=== PATIENT | female | born 1930 | race African-American/Black ===

== ENCOUNTER 2018-05-03 14:13 | Emergency (ER) | payer MEDICARE, MEDICAID | END 2018-05-03 15:10 | disposition home or self-care (01) | LOC: ERS 14:13 | DX: H69.93 Unspecified Eustachian tube disorder, bilateral (principal); I10 Essential (primary) hypertension | CPT/HCPCS: 99282 ==

== ENCOUNTER 2018-05-28 10:54 | Inpatient (IN) | payer MEDICARE, MEDICAID ==
[2018-05-28 11:30] LABS: #Lymphocytes 1.1 thou/uL (1.20-3.40); #Monocytes 0.5 thou/uL (0.11-0.59); #Neutrophils 2.7 thou/uL (1.40-6.50); %Basophils 0.9 % (0.0-1.0); %Lymphocytes 25.3 % (21.0-51.0); %Monocytes 10.5 % (0.0-10.0); %Neutrophils 62.3 % (42.0-75.0); Hemoglobin 9.8 g/dL (12.0-16.0); Mean Corpuscular HGB CONC 30.6 g/dL (32.0-36.0); Mean Corpuscular Hemoglobin 28.5 pg (27.0-31.0); Mean Corpuscular Volume 93.4 fL (78.0-98.0); Mean Platelet Volume 7.3 fL (7.4-10.4); Platelet Count 237 thou/uL (130-400); RBC Distribution Width 14.9 % (11.5-14.5); Red Blood Cell (RBC) Count 3.44 mill/uL (4.20-5.40); White Blood Cell (WBC) Count 4.3 thou/uL (4.8-10.8)
[2018-05-28 12:08] LABS: ALT (SGPT) Less than 7 U/L (8-55); AST (SGOT) 12 U/L (5-34); Albumin 2.4 g/dL (3.4-4.8); Alkaline Phosphatase 52 U/L (40-150); Anion Gap 10 mmol/L (10-20); BUN (Urea Nitrogen) 5 mg/dL (9.8-20.1); Bilirubin, Total 0.9 mg/dL (0.2-1.2); CK (CPK) 14 U/L (29-168); Calc. Creatinine Clearance 0 mL/min (70-130); Calcium 8.3 mg/dL (7.8-10.44); Carbon Dioxide 32 mmol/L (23-31); Chloride 99 mmol/L (98-107); Estimated GFR-MDRD Greater than 90; Globulin 5.4 g/dL (2.4-3.5); Glucose 96 mg/dL (83-110); Magnesium 1.6 mg/dL (1.6-2.6); Protein, Total 7.8 g/dL (6.0-8.3); Sodium 139 mmol/L (136-145)
[2018-05-28 12:24] LABS: Potassium 2.3 mmol/L (3.5-5.1)
[2018-05-28 12:28] LABS: CKMB 0.4 ng/mL (0-6.6)
--- NOTE | 2018-05-28 12:34 | RAD ---
PORTABLE CHEST: History: Altered mental status. FINDINGS: Heart size is within normal limits. There are arthrosclerotic changes of the aorta. Chronic lung nair ges are seen. The bones are demineralized. IMPRESSION: 1. Atherosclerosis of the aorta. 2. Diffuse bony demineralization. 3. Mild chronic lung change. POS: [facility]
[2018-05-28] MEDS ORDERED: Potassium Chloride 20 MEQ TAB ONE (12:48)
[2018-05-28] MEDS ORDERED: cefTRIAXone\\ROCEPHIN 1 GM VIAL ONE (12:48)
[2018-05-28] MEDS ORDERED: NS 0.9% w/ 20 MEQ KCL 1,000 ML IV SCH (13:00)
[2018-05-28] MEDS ORDERED: Cefepime 1 GM in Sodium Chloride 0.9% 100 ML IVPB SCH (13:15)
[2018-05-28 14:54] LABS: Troponin I 0.124 ng/mL (< 0.028)
[2018-05-28] MEDS ORDERED: Ondansetron ODT 4 MG TAB SL PRN (16:58)
[2018-05-28] MEDS ORDERED: Ondansetron PF 4 MG/2 ML Vial IVP PRN (16:58)
[2018-05-28 17:37] VITALS: BMI 18.3
[2018-05-28 18:01] LABS: Troponin I 0.143 ng/mL (< 0.028)
[2018-05-29] MEDS: D5 1/2 NS w/20 mEq KCL 1,000 ML IV SCH ×3 (00:08→21:13)
[2018-05-29 05:31] LABS: Hemoglobin 8.1 g/dL (12.0-16.0); Lymphocytes 35 % (21-51); MDiff Complete? YES; Mean Corpuscular HGB CONC 31.3 g/dL (32.0-36.0); Mean Corpuscular Hemoglobin 29.3 pg (27.0-31.0); Mean Corpuscular Volume 93.9 fL (78.0-98.0); Monocytes 13 % (0-10); Neutrophil 52 % (42-75); Platelet Count 167 thou/uL (130-400); Platelet Morphology Comment Appears Adequate; RBC Distribution Width 15.1 % (11.5-14.5); Red Blood Cell (RBC) Count 2.74 mill/uL (4.20-5.40); White Blood Cell (WBC) Count 3.8 thou/uL (4.8-10.8)
[2018-05-29 05:41] LABS: Anion Gap 9 mmol/L (10-20); BUN (Urea Nitrogen) 6 mg/dL (9.8-20.1); Calc. Creatinine Clearance 44 mL/min (70-130); Calcium 7.7 mg/dL (7.8-10.44); Carbon Dioxide 30 mmol/L (23-31); Chloride 107 mmol/L (98-107); Estimated GFR-MDRD Greater than 90; Glucose 132 mg/dL (83-110); Iron Binding Capacity, Total 86 mcg/dL (265-497); Sodium 143 mmol/L (136-145)
[2018-05-29 05:47] LABS: Potassium 2.7 mmol/L (3.5-5.1)
[2018-05-29 06:20] LABS: Folate (Folic Acid) 5.6 ng/mL (7.0-31.4)
[2018-05-29] MEDS: Potassium Chloride 20 MEQ in Premix Bag 1 BAG IVPB SCH ×2 (06:27→08:58)
[2018-05-29] MEDS: cefTRIAXone\\ROCEPHIN 1 GM in Sodium Chloride 0.9% 100 ML IVPB SCH (08:58)
--- NOTE | 2018-05-29 09:02 | HP ---
CHIEF COMPLAINT: Hypokalemia. HISTORY OF PRESENT ILLNESS: Ms. Rosemary Batres is an 87-year-old female with past medical history of hypertension and degenerative joint disease, was seen in the office a couple of days ago with history of weakness, not eating well, and losing weight. The patient had lab work done in the office reveals severe hypokalemia with potassium of 2.2. In view of that, the patient was told to come to the hospital. In the ER, the patient was evaluated and found to have potassium of 2.3. The patient has not been eating well secondary to anorexia for the last few months and lost quite a bit of weight. She lost more than 20 pounds in the last 3 to 4 months and feeling very weak and unable to ambulate. Usually, the patient is very active. Currently, she does not have any chest pain or shortness of breath. No nausea or vomiting. No abdominal pain. No diarrhea. No headache. Feels dizzy sometimes. In the ER, the patient was given KCl replacement and also received antibiotics because of her UTI. Urinalysis done in the office revealed UTI. PAST MEDICAL HISTORY: 1. Hypertension. 2. Degenerative joint disease. PAST SURGICAL HISTORY: None. CURRENT MEDICATIONS: It is not clear what she is on at the present. ALLERGIES: NO KNOWN DRUG ALLERGIES. FAMILY HISTORY: Nothing contributory. SOCIAL HISTORY: The patient lives with her family. No history of smoking. No history of alcohol abuse. REVIEW OF SYSTEMS: CARDIOVASCULAR: No chest pain. No shortness of breath. RESPIRATORY: No fever or cough. GASTROINTESTINAL: No abdominal pain. No diarrhea. No nausea or vomiting. CENTRAL NERVOUS SYSTEM: No headache. Feels dizzy. PHYSICAL EXAMINATION: GENERAL: The patient is alert, awake, oriented x3. VITAL SIGNS: Temperature 98, pulse 80, respirations 20, blood pressure 140/60. HEENT: Head is normocephalic, atraumatic. Pupils are equal and reactive. Nasopharynx is pale and dry. Hard and soft palate, no lesions. SKIN: Turgor decreased. NECK: Supple. No JVD. LUNGS: Breath sounds diminished bilaterally. Percussion dull bilaterally. No rales. No rhonchi. HEART: S1 and S2 regular. ABDOMEN: Soft. No distention. No tenderness. Normal bowel sounds present. Some regular hernia present. CENTRAL NERVOUS SYSTEM: No focal deficits. EXTREMITIES: No edema. LABORATORY DATA: CBC shows WBC of 4.3, hemoglobin 9.8, hematocrit 32.1, platelets 237. Metabolic panel; sodium 139, potassium 2.3, chloride 99, CO2 of 32, creatinine 0.5, glucose 96. CK-MB 0.4, globulin 5.4. Chest x-ray showed chronic lung changes. EKG shows normal sinus rhythm, no acute ST changes seen. ASSESSMENT: 1. Severe hypokalemia. 2. Anorexia and weight loss. 3. Urinary tract infection. 4. Generalized weakness. 5. Elevated troponin, rule out myocardial infarction. 6. History of hypertension. PLAN: 1. Vital signs q.4. 2. Activity: As tolerated. 3. Allergies: NKDA. 4. IV fluids, D5 half with normal saline with kcl 20 meq at 100 ml/hr. 5. Diet, regular. 6. Continue home medications. 7. Rocephin 1 g IV piggyback daily. 8. GI consult. 9. BMP in the morning. Job ID: [id number] [facility]
[2018-05-29] MEDS: Potassium Chloride 20 MEQ TAB PO SCH ×2 (18:01→20:15)
[2018-05-30 05:05] LABS: #Monocytes 0.5 thou/uL (0.11-0.59); #Neutrophils 2.9 thou/uL (1.40-6.50); %Basophils 0.8 % (0.0-1.0); %Eosinophils 0.3 % (0.0-10.0); %Monocytes 11.3 % (0.0-10.0); %Neutrophils 64.6 % (42.0-75.0); Hemoglobin 8.7 g/dL (12.0-16.0); Mean Corpuscular HGB CONC 31.4 g/dL (32.0-36.0); Mean Corpuscular Volume 95.7 fL (78.0-98.0); Mean Platelet Volume 7.2 fL (7.4-10.4); Platelet Count 185 thou/uL (130-400); Red Blood Cell (RBC) Count 2.89 mill/uL (4.20-5.40); White Blood Cell (WBC) Count 4.5 thou/uL (4.8-10.8)
[2018-05-30 05:28] LABS: Anion Gap 9 mmol/L (10-20); BUN (Urea Nitrogen) 4 mg/dL (9.8-20.1); Calc. Creatinine Clearance 47 mL/min (70-130); Calcium 7.6 mg/dL (7.8-10.44); Carbon Dioxide 27 mmol/L (23-31); Chloride 106 mmol/L (98-107); Estimated GFR-MDRD Greater than 90; Glucose 86 mg/dL (83-110); Potassium 3.6 mmol/L (3.5-5.1); Sodium 138 mmol/L (136-145)
--- NOTE | 2018-05-30 08:48 | CON ---
DATE OF CONSULTATION: 05/29/2018 REFERRING DOCTOR: Johnson Early MD. REASON FOR CONSULTATION: Unexplained weight loss, fatigue, and tiredness. HISTORY OF PRESENT ILLNESS: Ms. Rosemary Batres is a very pleasant 87-year-old fragile-looking black female hospitalized because of severe hypokalemia, history of weight loss, anorexia, etc. The patient was in the room with multiple family members. The patient has unexplained weight loss, but as per admitting history and physical by Dr. Early, states she has lost 20 pounds. Apparently, she has been eating very well over the last several weeks. There is causative information of other family members history of her weighing around 124 pounds two years ago. There is no recent weight documented anywhere. The patient on admission is actually eating much better. She had a good breakfast this morning and she is eating lunch very well. The only complaint she has is cough with some mucoid expectoration, lot of secretions in the throat. She did have abdominal pain, no nausea, no vomiting. Her bowels movements are fairly regular. There is no history of hematochezia or melena. The patient denies any fever or night sweats. Although, she seems to be having weight loss, she really has no localizing symptoms. Interestingly, she is eating much better since she has been hospitalized. Apparently, she has undergone evaluation and potassium level was very low at 2.2 and she was placed on oral potassium. When she came to the ER, potassium was 2.3 and today is 2.7 with IV potassium. The patient has really no other localizing symptoms. ALLERGIES: NONE. SOCIAL HISTORY: The patient lives close with family. No history of alcohol abuse. No illicit drug use. No smoking. MEDICAL ILLNESS: 1. Hypertension. 2. Osteoarthritis. SURGERIES: None. MEDICATIONS: List in the hospital includes ceftriaxone, potassium chloride, statin, and IV fluids. REVIEW OF SYSTEMS: CONSTITUTIONAL: History of weight loss. No history of night sweats. No history of any fever or chills. HEAD: No chronic headache. No syncope. No TIA. HEENT: No visual impairment. No hearing loss. No nose bleeds. NECK: No neck stiffness or pain. LUNGS: No chronic coughing, hemoptysis, or difficulty breathing, but she has been having cough with expectoration recently. CARDIOVASCULAR: No chest pain. No palpitation. No dyspnea, orthopnea, or PND. GI: No abdominal pain. No nausea or vomiting. No dysphagia or odynophagia. No rectal bleeding or melena. : No dysuria or hematuria. MUSCULOSKELETAL: None drawn. NEUROLOGIC: None drawn. ENDOCRINE: None drawn. NEUROPSYCHIATRY: None drawn. PHYSICAL EXAMINATION: GENERAL: She is likely very thin built, appears very comfortable, in no acute distress. VITAL SIGNS: Afebrile. Pulse is 76, blood pressure 121/63. HEENT: Conjunctivae are clear. NECK: Supple. No adenitis or thyromegaly noted. CARDIOVASCULAR: First and second heart sounds heard. LUNGS: Clear to auscultation. ABDOMEN: Abdomen is soft. Abdomen is nontender. No organomegaly or masses. Bowel sounds normal. EXTREMITIES: Reveal no edema. CENTRAL NERVOUS SYSTEMS: Grossly within normal limits. LABORATORY DATA: CBC on admission 4300, hemoglobin 9.8, hematocrit 32.1, today down to 8.1 hemoglobin, hematocrit 25.8, MCV 93.9, platelet count 167,000, polymorphs 62, lymphocytes 25, monocytes 10. Serum chemistries; sodium 143, potassium 2.7, chloride 107, bicarb 30, BUN is 6, creatinine is 0.52, glucose 132, calcium 7.7. TIBC is 86, vitamin B12 slightly low at 189, folic acid 5.60. CLINICAL IMPRESSION: 1. An 87-year-old female with unexplained weight loss. However, she has really no specific GI symptoms. Interestingly, she is eating better in the hospital. Apparently, she had a good breakfast and lunch. She had no localizing symptoms or weight loss. 2. Hypertension. 3. Degenerative joint disease. 4. Hypokalemia, being corrected. I had a long talk with the patient's family and explained to them it is very difficult to say what is going on. However, I offered them for the patient to have ED and the patient's family agreed. We will plan for EGD tomorrow and make further recommendations. Job ID: [id number]
[2018-05-30] MEDS: Folic Acid 1 MG TAB PO SCH (09:05)
[2018-05-30] MEDS: Cyanocobalamin 1000 MCG/ML VIAL IM SCH (09:05)
[2018-05-30] MEDS: cefTRIAXone\\ROCEPHIN 1 GM in Sodium Chloride 0.9% 100 ML IVPB SCH (09:05)
--- NOTE | 2018-05-30 15:21 | PQF ---
CLINICAL DOCUMENTATION IMPROVEMENT CLARIFICATION FORM: ICD-10 Updated PLEASE DO AN ADDENDUM TO THE PROGRESS NOTE WITH ANY DOCUMENTATION UPDATES OR ADDITIONS AND CARRY THROUGH TO DC SUMMARY. THANK YOU. Date: 05/30/18 ATTN: Dr. Early Please exercise your independent, professional judgment in responding to the clarification form. 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 RISKS: H&P 05/28: 87 yr old. Severe hypokalemia. Anorexia and weight loss. TREATMENT: Qa Software Tester Assessment 05/29: Triggered for WTL/PO/ BMI 18.3 Consult for anorexia/weight loss Order 05/29: Supplement: Ensure Enlive Routine BID Moderate Malnutrition (in acute illness) Energy Intake: <75% of estimated energy requirement for > 7 days Weight Loss: 1-2%/1 week; 5%/ 1 month; 7.5%/3 months Other: mild body fat loss; mild muscle mass loss; mild fluid accumulation; Severe Malnutrition (in acute illness) Energy Intake: < 50% of estimated energy requirement for > 5 days Weight Loss: >1-2%/1 week; >5%/1 month; >7.5%/3 months Other: moderate body fat loss; moderate muscle mass loss; moderate- severe fluid accumulation; measurably reduced er medical technician strength Moderate Malnutrition (in chronic illness) Energy Intake: <75% of estimated energy requirement for >1 month Weight Loss: 5%/1 month; 7.5%/3 months; 10%/6 months; 20%/1 year Other: mild body fat loss; mild muscle mass loss; mild fluid accumulation Severe Malnutrition (in chronic illness) Energy Intake: <75% of estimated energy requirement for >1 month Weight Loss: >5%/1 month; >7.5%/3 months; >10%/6 months; >20%/1 year Other: severe body fat loss; severe muscle mass loss; severe fluid accumulation; measurably reduced er medical technician strength Thank you, Nancy (This form is maintained as a part of the permanent medical record) 2015 [employer] All Rights Reserved Nancy Robert RN, BSN [email or web address] Office: [phone] [facility]
[2018-05-30] MEDS ORDERED: Lidocaine 1% PF 5 ML VIAL ONE (16:29)
[2018-05-30] MEDS ORDERED: PROPOFOL 200 MG/20 ML VIAL ONE (16:29)
--- NOTE | 2018-05-30 20:41 | OP ---
DATE OF PROCEDURE: 05/30/2018 OPERATIVE PROCEDURE: Esophagogastroduodenoscopy. PREOPERATIVE DIAGNOSES: Anorexia, weight loss. POSTOPERATIVE DIAGNOSIS: Normal gastroscopy. DESCRIPTION OF PROCEDURE: The patient was placed on her left lateral position and was given sedation by Anesthesia Department. A Pentax video gastroscope under direct vision passed down the oropharynx through the GE junction into the stomach and subsequently into the descending duodenum. The esophageal mucosa appeared normal. The GE junction, no pathology. Retroflexion failed to show any pathology in the fundus or cardia. The gastric body, gastric antrum, no pathology seen. The duodenal bulb, descending duodenum, no pathology. The stomach decompressed and the scope was removed. RECOMMENDATION: Resume a regular diet. The patient is currently eating well over the last 24 hours in the hospital. She does have anemia. I would further recommend symptomatic treatment. Unless she has any overt bleeding or occult GI bleeding, I would probably defer a colonoscopy for this lady. She has started eating better over last 24 hours, I will follow up with her as an outpatient. Job ID: [id number]
[2018-05-31] MEDS: cefTRIAXone\\ROCEPHIN 1 GM in Sodium Chloride 0.9% 100 ML IVPB SCH (09:38)
[2018-05-31] MEDS: Folic Acid 1 MG TAB PO SCH (09:39)
[2018-05-31] MEDS: Cyanocobalamin 1000 MCG/ML VIAL IM SCH (09:39)
[2018-06-01 06:27] LABS: #Lymphocytes 1.2 thou/uL (1.20-3.40); #Monocytes 0.4 thou/uL (0.11-0.59); #Neutrophils 1.4 thou/uL (1.40-6.50); %Eosinophils 1.2 % (0.0-10.0); %Lymphocytes 39.6 % (21.0-51.0); %Monocytes 13.3 % (0.0-10.0); %Neutrophils 44.9 % (42.0-75.0); Hemoglobin 9.5 g/dL (12.0-16.0); Mean Corpuscular HGB CONC 31.2 g/dL (32.0-36.0); Mean Corpuscular Hemoglobin 29.4 pg (27.0-31.0); Mean Corpuscular Volume 94.3 fL (78.0-98.0); Mean Platelet Volume 8.5 fL (7.4-10.4); Platelet Count 136 thou/uL (130-400); RBC Distribution Width 15.4 % (11.5-14.5); Red Blood Cell (RBC) Count 3.24 mill/uL (4.20-5.40)
[2018-06-01 06:53] LABS: ALT (SGPT) Less than 7 U/L (8-55); AST (SGOT) 15 U/L (5-34); Albumin 1.9 g/dL (3.4-4.8); Alkaline Phosphatase 52 U/L (40-150); Anion Gap 10 mmol/L (10-20); BUN (Urea Nitrogen) 5 mg/dL (9.8-20.1); Bilirubin, Total 0.4 mg/dL (0.2-1.2); Calc. Creatinine Clearance 46 mL/min (70-130); Calcium 7.9 mg/dL (7.8-10.44); Carbon Dioxide 26 mmol/L (23-31); Chloride 105 mmol/L (98-107); Estimated GFR-MDRD Greater than 90; Globulin 4.6 g/dL (2.4-3.5); Glucose 75 mg/dL (83-110); Potassium 3.5 mmol/L (3.5-5.1); Protein, Total 6.5 g/dL (6.0-8.3); Sodium 137 mmol/L (136-145)
[2018-06-01] MEDS: Folic Acid 1 MG TAB PO SCH (08:33)
[2018-06-01] MEDS: Cyanocobalamin 1000 MCG/ML VIAL IM SCH (08:34)
[2018-06-01] MEDS: cefTRIAXone\\ROCEPHIN 1 GM in Sodium Chloride 0.9% 100 ML IVPB SCH (09:36)
[2018-06-02 07:55] VITALS: TEMP 97.9
[2018-06-02] MEDS: cefTRIAXone\\ROCEPHIN 1 GM in Sodium Chloride 0.9% 100 ML IVPB SCH (08:43)
[2018-06-02] MEDS: Folic Acid 1 MG TAB PO SCH (08:45)
[2018-06-02] MEDS: Cyanocobalamin 1000 MCG/ML VIAL IM SCH (11:22)
[2018-06-02 16:48] VITALS: BP 110/63
[2018-06-03] MEDS ORDERED: Cyanocobalamin (Vitamin B-12) 1,000 MCG TAB PO SCH (09:00)
== END 2018-06-02 17:30 | disposition home or self-care (01) | DRG 640 ==
LOC: ERS 10:54 → ERHOLD 12:30 → 2NO 17:07 → T4-A 05-31 11:30
PROVIDERS: ADMIT Internal Medicine; ATTEND Internal Medicine
PROC: 0DJ08ZZ Inspection of Upper Intestinal Tract, Via Natural or Artificial Opening Endoscopic (ICD-10-PCS; principal; 2018-05-30)
DX: E87.6 Hypokalemia (principal); E43 Unspecified severe protein-calorie malnutrition; N39.0 Urinary tract infection, site not specified; Z68.1 Body mass index [BMI] 19.9 or less, adult; R74.8 Abnormal levels of other serum enzymes; I10 Essential (primary) hypertension; D63.8 Anemia in other chronic diseases classified elsewhere; M19.90 Unspecified osteoarthritis, unspecified site
CPT/HCPCS: 36415; 71045; 80048; 80053; 82550; 82553; 82607; 82746; 83550; 83735; 84484; 85007; 85025; 85027; 87086; 93005; 96361; 96365; 96375; J0692; J0696; J2001; J2704; J3420; J3480; J7050

== ENCOUNTER 2018-09-19 13:57 | Inpatient (IN) | payer MEDICARE, MEDICAID ==
--- NOTE | 2018-09-19 14:54 | RAD ---
XR Hip Lt 2-3 View INDICATION: 88-year-old female with left leg pain and generalized weakness COMPARISON: None FINDINGS: Bones: No acute osseous abnormality. There is diffuse osteopenia. Hip joint: There is mild left hip osteoarthrosis. SI joints and symphysis pubis: There is mild degenerative change of the symphysis pubis and left SI j oints. Intrapelvic contents: There is a prominent amount of retained stool within the rectal vault. Surrounding soft tissues: There is vascular calcification within the adjacent soft tissues. IMPRESSION: 1. No acute osseous abnormality.
[2018-09-19 14:58] LABS: #Lymphocytes 0.9 thou/uL (1.20-3.40); #Monocytes 0.8 thou/uL (0.11-0.59); #Neutrophils 7.3 thou/uL (1.40-6.50); %Basophils 0.2 % (0.0-1.0); %Eosinophils 0.1 % (0.0-10.0); %Lymphocytes 9.5 % (21.0-51.0); %Monocytes 9.2 % (0.0-10.0); Hemoglobin 10.6 g/dL (12.0-16.0); Mean Corpuscular HGB CONC 30.4 g/dL (32.0-36.0); Mean Corpuscular Hemoglobin 29.1 pg (27.0-31.0); Mean Corpuscular Volume 95.8 fL (78.0-98.0); Mean Platelet Volume 7.2 fL (7.4-10.4); Platelet Count 300 thou/uL (130-400); RBC Distribution Width 13.5 % (11.5-14.5); Red Blood Cell (RBC) Count 3.64 mill/uL (4.20-5.40)
--- NOTE | 2018-09-19 15:19 | RAD ---
PORTABLE CHEST: HISTORY: Shortness of breath. COMPARISON: 05/28/2018 FINDINGS: Mild cardiomegaly is stable. The lungs appear clear of infiltrate. No evidence of vascular congesti on. There is a moderate-sized right effusion, which has increased when compared to the 05/28/2018 ex am. IMPRESSION: Moderate sized right pleural effusion. POS: [facility]
[2018-09-19 15:26] LABS: ALT (SGPT) Less than 7 U/L (8-55); AST (SGOT) 16 U/L (5-34); Albumin 2.8 g/dL (3.4-4.8); Alkaline Phosphatase 52 U/L (40-150); Anion Gap 12 mmol/L (10-20); BUN (Urea Nitrogen) 14 mg/dL (9.8-20.1); Bilirubin, Total 0.8 mg/dL (0.2-1.2); Calc. Creatinine Clearance 0 mL/min (70-130); Carbon Dioxide 25 mmol/L (23-31); Chloride 104 mmol/L (98-107); Estimated GFR-MDRD Greater than 90; Globulin 6.7 g/dL (2.4-3.5); Glucose 104 mg/dL (83-110); Lipase 10 U/L (8-78); Potassium 3.4 mmol/L (3.5-5.1); Protein, Total 9.5 g/dL (6.0-8.3); Sodium 138 mmol/L (136-145)
--- NOTE | 2018-09-19 15:31 | CT ---
CT head without contrast: Multiple axial tomograms obtained through the head without IV enhancement. INDICATIONS: Mental status change COMPARISON: None FINDINGS: There is a left subdural hematoma along the left frontal lobe convexity which has subacute properties . There are acute and chronic components. This measures 1.5 cm width and produces mass effect on the left frontal cortex. Midline shift is measured at 4 mm at the septum pellucidum. Moderate chronic ischemic white matter change. Mild cortical atrophy. Visualized sinuses and mastoids appear clear. Bony calvarium appears unremarkable. IMPRESSION: Left subdural hematoma with mass effect and slight midline shift. Discussed with Dr. West
[2018-09-19 15:41] LABS: CKMB 0.5 ng/mL (0-6.6)
[2018-09-19] MEDS ORDERED: Ondansetron PF 4 MG/2 ML Vial IVP PRN (18:38)
[2018-09-19] MEDS ORDERED: Acetaminophen 325 MG TAB PO PRN (18:38)
[2018-09-19] MEDS ORDERED: Ondansetron ODT 4 MG TAB SL PRN (18:38)
[2018-09-19 18:40] VITALS: BMI 13.5
[2018-09-19] MEDS ORDERED: Sodium Chloride 0.9% 1,000 ML IV SCH (18:45)
[2018-09-19 21:42] LABS: Troponin I 0.087 ng/mL (< 0.028)
[2018-09-20] MEDS ORDERED: Ondansetron ODT 4 MG TAB SL PRN (09:15)
[2018-09-20] MEDS ORDERED: Ondansetron PF 4 MG/2 ML Vial IVP PRN (09:15)
[2018-09-20 10:06] LABS: #Lymphocytes 0.9 thou/uL (1.20-3.40); #Monocytes 0.7 thou/uL (0.11-0.59); #Neutrophils 6.9 thou/uL (1.40-6.50); %Basophils 0.1 % (0.0-1.0); %Eosinophils 0.2 % (0.0-10.0); %Lymphocytes 10.6 % (21.0-51.0); %Monocytes 8.3 % (0.0-10.0); %Neutrophils 80.8 % (42.0-75.0); Mean Corpuscular HGB CONC 30.9 g/dL (32.0-36.0); Mean Corpuscular Hemoglobin 29.6 pg (27.0-31.0); Mean Corpuscular Volume 95.7 fL (78.0-98.0); Mean Platelet Volume 7.9 fL (7.4-10.4); Platelet Count 254 thou/uL (130-400); RBC Distribution Width 13.4 % (11.5-14.5); Red Blood Cell (RBC) Count 3.38 mill/uL (4.20-5.40); White Blood Cell (WBC) Count 8.5 thou/uL (4.8-10.8)
[2018-09-20 10:24] LABS: Anion Gap 11 mmol/L (10-20); BUN (Urea Nitrogen) 12 mg/dL (9.8-20.1); Calc. Creatinine Clearance 41 mL/min (70-130); Calcium 8.8 mg/dL (7.8-10.44); Carbon Dioxide 24 mmol/L (23-31); Chloride 108 mmol/L (98-107); Estimated GFR-MDRD Greater than 90; Glucose 94 mg/dL (83-110); Sodium 140 mmol/L (136-145)
[2018-09-20 10:29] LABS: Potassium 2.7 mmol/L (3.5-5.1)
[2018-09-20] MEDS: Sodium Chloride 0.9% 1,000 ML IV SCH (10:42)
[2018-09-20] MEDS: Potassium Chloride 20 MEQ in Premix Bag 1 BAG IVPB SCH ×2 (11:54→14:58)
--- NOTE | 2018-09-20 12:34 | CON ---
DATE OF CONSULTATION: 09/19/2018 TIME: At 1645 hours in the afternoon. Ms. Batres is an 88-year-old woman, here today in the emergency department, brought by family for medical evaluation for progressive overall decline and deconditioning since around the turn of the year. She had nearly a hospital admission back in May for some altered mental status and generalized fatigue and malaise and was found to be hypokalemic. This was corrected and she improved ever since slightly, but family states that overall she really has not gained much improvement overall since that time and then particularly over the last 3 weeks, she has become more somnolent. She is awake, but does not interact very much. She minimally speaks. She has really rapidly lost weight and is not eating. As of today, she weighs roughly 80 pounds. Neurosurgery was consulted for a CT scan that was done as part of her workup, which showed a left-sided chronic fluid collection that looks like it could be a combination of epidural and subdural collections over the left frontal convexity with some extension down to the left temporal convexity. There is mass effect on the underlying brain parenchyma and some slight midline shift. However, she does also have significant cortical atrophy and a lot of additional space in the cranial vault. She does not have any lateralizing symptoms or concerns on examination. She moves all 4 extremities and is looking around the room. She is just not speaking, though the family states that this is essentially the case since May, timeframe this year the family is unsure that she has had any falls or other opportunities for her to have struck her head. She does also not take any blood thinners at any time according to family that is in the room. From a neurosurgical perspective, I do not see that she necessarily needs any intervention at this time given that she appears cachectic and minimally interactive and that this is more of a chronic state and it is an acute state. It is possible that some of her symptoms do relate to parenchymal compression from this fluid collection, but I feel like she has enough concern for some other overall medical condition that needs to be worked up first. We will defer to Primary Team for this purpose. Job ID: [id number]
[2018-09-20] MEDS: Sodium Chloride 0.45% 1,000 ML IV SCH (20:01)
[2018-09-20] MEDS: Mirtazapine 15 MG TAB PO SCH (20:52)
--- NOTE | 2018-09-20 23:01 | HP ---
CHIEF COMPLAINT: Pain and also weakness and lethargy. HISTORY OF PRESENT ILLNESS: Ms. Batres is an 88-year-old Afro [place] female with past medical history of hypokalemia, protein-calorie malnutrition, who was brought in because of the left leg pain. The patient has been sleepy, feeling very weak. There is some cough productive of whitish sputum. No fever. No chest pain. No shortness of breath. The patient has not been eating well. She was brought to the emergency room, where she was evaluated and she was found to have subdural hematoma on the CT scan of the brain. She was also found to have moderate pleural effusion on the right .pt is being admitted for subdural hematoma and weakness. The patient is admitted for further evaluation and management. PAST MEDICAL HISTORY: 1. Severe protein-calorie malnutrition. 2. Degenerative joint disease. 3. History of hypertension, not on medications. 4. History of UTI. 5. History of hypokalemia. PAST SURGICAL HISTORY: Nothing significant. CURRENT MEDICATIONS: The patient is on Remeron 15 mg nightly and Tylenol p.r.n. ALLERGIES: NKDA. FAMILY HISTORY: Nothing contributory. SOCIAL HISTORY: The patient lives with family. No history of smoking. No history of alcohol abuse. REVIEW OF SYSTEMS: CARDIOVASCULAR: No chest pain. No shortness of breath. RESPIRATORY: She has cough, productive of whitish sputum. No fever. GASTROINTESTINAL: Has anorexia and weight loss. CENTRAL NERVOUS SYSTEM: No headache. Feels dizzy and weak. PHYSICAL EXAMINATION: GENERAL: The patient is alert, awake, and oriented x2. VITAL SIGNS: Temperature 98, pulse 87, respiratory rate 20, and blood pressure 170/100. HEENT: Normocephalic and atraumatic. Pupils are equal and reactive. Nasopharynx is pale and dry. Hard and soft palate. No lesions. SKIN: Turgor decreased. NECK: Supple. No JVD. LUNGS: Bilateral air entry present. No rales, no rhonchi. HEART: S1 and S2. Regular. ABDOMEN: Soft. No distention. No tenderness. Normal bowel sounds present. RECTAL: Deferred. CENTRAL NERVOUS SYSTEM: Nonfocal. The patient is alert, awake, and oriented x2. Motor system, power 3 to 4/5 in all extremities. Deep tendon reflex 2+ bilaterally. Sensory intact. LABORATORY DATA: CBC shows WBC 9, hemoglobin 10, hematocrit 34, and platelets 300. Metabolic panel: Sodium 138, potassium 3.4, chloride 104, CO2 is 25, blood urea nitrogen 14, creatinine 0.5, and glucose 104. Troponin I 0.067. BNP is 285. Albumin 2.8. Chest x-ray, moderate right pleural effusion. CT of the brain revealed a left subdural hematoma with mass effect and slight midline shift. IMAGING STUDIES: Left hip x-ray negative. EKG shows normal sinus rhythm, no acute ST-T changes seen. ASSESSMENT: 1. Subdural hematoma, left. 2. Severe hypokalemia. 3. Generalized weakness. 4. Severe protein-calorie malnutrition. 5. Metabolic encephalopathy. 6. Anorexia, weight loss. PLAN: 1. Vital signs q.4 hours. 2. Activity as tolerated. 3. Allergies: NKDA. 4. IV fluids, half normal at 870 mL/hour. 5. KCl replacement: Continue home medications. 6. GI consult. 7. Neurosurgery consult. 8. Regular diet. Job ID: [id number] [facility]
--- NOTE | 2018-09-20 23:10 | CON ---
DATE OF CONSULTATION: 09/20/2018 REQUESTING PHYSICIAN: Dr. Early. REASON FOR CONSULTATION: Rectal bleeding. HISTORY OF PRESENT ILLNESS: Rosemary Batres is an 88-year-old woman who was admitted to the hospital last night with deteriorating mental status and severe weight loss over the past several months. She has evidently lost quite a bit of weight. She was evaluated from a GI standpoint by Dr. Irene braga in May of 2018. She had an EGD that was normal. Colonoscopy was declined at that time due to the patient's overall health status and risks of the procedure. The patient has never undergone colonoscopy. Upon admission here last night, cranial imaging demonstrated a couple of subdural hematomas actually causing some mass effect and midline shift. She has been evaluated by Neurosurgery and they recommend no neurosurgical intervention at this time. She also has a moderate right pleural effusion. She is certainly confused and her answers to questioning are tangential. This morning, she had a bowel movement and nursing staff noted that there was a bit of red blood mixed in with brownish stool. This is not something that has been noted by providers before and it is unclear whether this is going on at home intermittently or not. The patient is hemodynamically stable and her hemoglobin is 10.0. REVIEW OF SYSTEMS: Full review of systems including constitutional, head, eyes, ears, nose, throat, GI, , cardiovascular, respiratory, musculoskeletal, and neurologic systems is negative except as noted in the HPI. PAST MEDICAL HISTORY: Hypertension, osteoarthritis. ALLERGIES: NONE. SURGERIES: None. OUTPATIENT MEDICATIONS: 1. Potassium chloride 10 mEq daily. 2. Mirtazapine 15 mg at bedtime. 3. Folic acid 800 mg daily. 4. Vitamin B12 1000 mcg daily. FAMILY HISTORY: Negative for known GI malignancy. SOCIAL HISTORY: The patient lives with one of her grandchildren. Her family is very involved. I spoke with her daughter, Carmela, over the phone at length. PHYSICAL EXAMINATION: VITAL SIGNS: Temperature 98.3, pulse 66, blood pressure 145/72, and 95% oxygen saturation on room air. GENERAL: A frail 88-year-old woman lying in bed comfortably, in no distress. MENTAL: She is alert. She does not answer questions appropriately. SKIN: No jaundice. No rashes were palpable. She does have a sacral decubitus ulcer. HEENT: Eyes, no scleral icterus. Extraocular movements intact. ENT mucous membranes moist. No oral lesions. LYMPHS: No submandibular, supraclavicular, lymphadenopathy. Thyroid nontender to palpation. HEART: Regular rate and rhythm. LUNGS: Clear to auscultation bilaterally. ABDOMEN: Flat. Bowel sounds present. Soft, nontender to deep palpation throughout. She does have a somewhat large right-sided anterior abdominal hernia, but this is easily reducible. RECTAL: The patient has external hemorrhoids. I performed a digital rectal exam. There is soft, brown stool in the rectal vault with a tinge of red blood upon withdrawal of the finger. The rectal aguayo feel edematous, but there is no nodularity. EXTREMITIES: Wasting of the extremities x4. No peripheral edema. Vessels, radial pulses 2+ bilaterally. NEURO: Cranial nerves 2 through 12 intact bilaterally. LABORATORY STUDIES: WBC 8.5, hemoglobin 10.0, platelets 254. Sodium 140, potassium 2.7, BUN 12, creatinine 0.53. BNP 285. Troponin 0.087. LFTs all normal with total bilirubin 0.8, alkaline phosphatase 52, AST 16, ALT less than 7, albumin 2.8. IMAGING STUDIES: Chest x-ray shows moderate right pleural effusion. Brain CT shows a left subdural hematoma measuring 1.5 cm with mass effect and midline shift. Hip x-ray shows no acute fracture. ASSESSMENT AND PLAN: 1. Rectal bleeding, small amount. 2. Weight loss. 3. Hemorrhoids. 4. Debility and failure to thrive. The patient does have hemorrhoids on rectal exam, and it is possible that this just represents rectal outlet source, but I cannot clinically rule out more proximal sources of gastrointestinal bleeding. Her hemoglobin is stable. The question is how aggressive we want to be in working this up, given her overall health status and comorbidities. I had a long conversation on the phone with the patient's daughter, Carmela, at phone #[phone]. I discussed the prospect of trying to proceed with diagnostic colonoscopy. I think there would be some diagnostic and perhaps prognostic value, in ruling out serious lesion or alternatively finding significant pathology. However, I doubt that there would be much therapeutic value in colonoscopy. Even if we were to find a colon cancer, the patient would not be a good candidate for surgery or curative chemotherapy, etc. This is Carmela's feeling as well. At this point, the family is against proceeding with any endoscopic investigation. I agree with this decision. The patient would indeed be quite high risk for the procedure and probably would not tolerate the bowel prep very well. GI will sign off at this time, but please call back any time with questions or concerns or if the family members change their mind or would like to discuss further. Job ID: [id number]
[2018-09-21] MEDS: Sodium Chloride 0.9% 1,000 ML IV SCH (00:44)
[2018-09-21] MEDS: Sodium Chloride 0.45% 1,000 ML IV SCH (03:50)
[2018-09-21 06:20] LABS: Anion Gap 9 mmol/L (10-20); BUN (Urea Nitrogen) 9 mg/dL (9.8-20.1); Calc. Creatinine Clearance 41 mL/min (70-130); Calcium 8.2 mg/dL (7.8-10.44); Carbon Dioxide 23 mmol/L (23-31); Chloride 109 mmol/L (98-107); Estimated GFR-MDRD Greater than 90; Glucose 79 mg/dL (83-110); Sodium 138 mmol/L (136-145)
[2018-09-21 06:22] LABS: #Lymphocytes 0.9 thou/uL (1.20-3.40); #Monocytes 0.8 thou/uL (0.11-0.59); #Neutrophils 6.7 thou/uL (1.40-6.50); %Basophils 0.2 % (0.0-1.0); %Eosinophils 0.3 % (0.0-10.0); %Lymphocytes 10.9 % (21.0-51.0); %Monocytes 9.4 % (0.0-10.0); %Neutrophils 79.3 % (42.0-75.0); Mean Corpuscular HGB CONC 31.7 g/dL (32.0-36.0); Mean Corpuscular Hemoglobin 30.1 pg (27.0-31.0); Mean Platelet Volume 7.4 fL (7.4-10.4); Platelet Count 237 thou/uL (130-400); Potassium 2.9 mmol/L (3.5-5.1); RBC Distribution Width 13.2 % (11.5-14.5); Red Blood Cell (RBC) Count 2.98 mill/uL (4.20-5.40); White Blood Cell (WBC) Count 8.5 thou/uL (4.8-10.8)
[2018-09-21] MEDS: Potassium Chloride 20 MEQ in Premix Bag 1 BAG IVPB SCH ×2 (06:49→09:22)
[2018-09-21] MEDS: Magnesium 2 GM/50 ML 2 GM in Premix Bag 1 BAG IVPB SCH ×2 (12:16→13:36)
--- NOTE | 2018-09-21 13:00 | CON ---
DATE OF CONSULTATION: HISTORY OF PRESENT ILLNESS: Rosemary Batres is an 88-year-old black female with history of protein-calorie malnutrition. She was admitted with left leg pain. She in general had failure to thrive at home. She cannot give much of a history, and history is obtained from reviewing her hospital records. She was found to have a subdural hematoma on head CT; however, it is felt this is a chronic problem and is not causing her any significant neurological difficulties at present. She has been found to have an 11-beat run of paroxysmal atrial tachycardia at 12:42 in the morning, and Cardiology consultation is requested. Ms. Batres denies any chest discomfort or shortness of breath. She denies any palpitations. However, I am not certain how reliable her history is. PAST MEDICAL HISTORY: 1. Hypertension, currently not on any medications. 2. Protein-calorie malnutrition. 3. Degenerative joint disease. 4. Hypokalemia. OPERATIONS: None. MEDICATIONS: 1. Remeron 15 nightly. 2. Tylenol. ALLERGIES: NONE. SOCIAL HISTORY: She does not smoke or drink. REVIEW OF SYSTEMS: Unobtainable. PHYSICAL EXAMINATION: VITAL SIGNS: Blood pressure 161/95 and pulse of 87. HEENT: PERRL. NECK: Supple. CHEST: Clear. CARDIAC: S1 and S2 normal without any S3, S4, or murmurs. ABDOMEN: Normal bowel sounds without tenderness or organomegaly. EXTREMITIES: No clubbing, cyanosis, or edema. NEUROLOGIC: Grossly intact except the patient does not answer questions well. LABORATORY DATA: EKG revealed sinus rhythm with minimal criteria for left ventricular hypertrophy. Hemoglobin 9.0, hematocrit 28.3, white count 8500, and platelets 237,000. Sodium 138, potassium 2.9, chloride 109, carbon dioxide 23, BUN 9, and creatinine 0.52. Troponin-I 0.087. IMPRESSION: 1. Malnutrition. 2. History of hypertension, not on medications at the present time. 3. An 11-beat run of paroxysmal atrial tachycardia at 12:30 a.m. PLAN: Echocardiogram will be performed to assess left ventricular function. The patient will be placed on low-dose Cardizem. With her generalized weakness and debilitated state, I do not feel any further evaluation is recommended. Job ID: [id number] [facility]
[2018-09-21] MEDS: Mirtazapine 15 MG TAB PO SCH (21:58)
[2018-09-21] MEDS: Acetaminophen 325 MG TAB PO PRN (23:55)
[2018-09-22] MEDS: Sodium Chloride 0.45% 1,000 ML IV SCH ×2 (02:46→22:32)
[2018-09-22 05:43] LABS: #Monocytes 0.7 thou/uL (0.11-0.59); #Neutrophils 5.2 thou/uL (1.40-6.50); %Basophils 0.2 % (0.0-1.0); %Eosinophils 0.5 % (0.0-10.0); %Lymphocytes 14.5 % (21.0-51.0); %Monocytes 9.8 % (0.0-10.0); Hemoglobin 9.4 g/dL (12.0-16.0); Mean Corpuscular HGB CONC 32.4 g/dL (32.0-36.0); Mean Corpuscular Hemoglobin 30.5 pg (27.0-31.0); Mean Corpuscular Volume 94.1 fL (78.0-98.0); Mean Platelet Volume 6.9 fL (7.4-10.4); Platelet Count 258 thou/uL (130-400); RBC Distribution Width 13.4 % (11.5-14.5); Red Blood Cell (RBC) Count 3.09 mill/uL (4.20-5.40); White Blood Cell (WBC) Count 6.9 thou/uL (4.8-10.8)
[2018-09-22 06:10] LABS: Anion Gap 9 mmol/L (10-20); BUN (Urea Nitrogen) 8 mg/dL (9.8-20.1); Calc. Creatinine Clearance 43 mL/min (70-130); Calcium 8.3 mg/dL (7.8-10.44); Carbon Dioxide 22 mmol/L (23-31); Chloride 107 mmol/L (98-107); Estimated GFR-MDRD Greater than 90; Glucose 85 mg/dL (83-110); Magnesium 1.9 mg/dL (1.6-2.6); Potassium 3.6 mmol/L (3.5-5.1); Sodium 134 mmol/L (136-145)
[2018-09-22 10:11] LABS: Bilirubin Negative (Negative); Blood, Urine Negative (Negative); Clarity CLOUDY (Clear); Glucose, Urine (Dipstick) Negative (Negative); Leukocyte Negative (Negative); Nitrite Negative (Negative); Protein, Urine (Dipstick) Trace mg/dL (Neg-Trace); Specific Gravity, Urine 1.015 (1.002-1.036)
[2018-09-22 10:19] LABS: Pathc Cast-AUWi Flag 12.65 (0-2.49)
[2018-09-22 10:27] LABS: Bacteria/HPF 1+ HPF (None Seen); Crystals/HPF 1+ CA OXALATE HPF (Negative); Hyaline Casts/LPF 0-3 HYALINE CAST LPF (0-3 Hyaline); Renal Epithelial None Seen HPF (0-3); Transitional Epithelial NONE SEEN HPF (0-3)
[2018-09-22 10:28] LABS: Manual Microscopic Reviewed? No Path Casts Seen
[2018-09-22] MEDS ORDERED: Ciprofloxacin 500 MG TAB PO SCH (11:00)
[2018-09-22] MEDS: Acetaminophen 325 MG TAB PO PRN (15:50)
[2018-09-22] MEDS ORDERED: Diltiazem HCl SR 60 mg Capsule PO SCH (20:00)
[2018-09-22] MEDS: Mirtazapine 15 MG TAB PO SCH (20:28)
[2018-09-22] MEDS: Ciprofloxacin 500 MG TAB PO SCH (20:28)
[2018-09-23] MEDS: Ciprofloxacin 500 MG TAB PO SCH ×2 (05:35→21:14)
[2018-09-23] MEDS: Magnesium Oxide 400 MG TAB PO SCH (09:53)
[2018-09-23] MEDS: Acetaminophen 325 MG TAB PO PRN (09:53)
[2018-09-23] MEDS: Sodium Chloride 0.45% 1,000 ML IV SCH (18:31)
[2018-09-23] MEDS: Mirtazapine 15 MG TAB PO SCH (21:14)
[2018-09-24 04:53] LABS: #Lymphocytes 0.8 thou/uL (1.20-3.40); #Monocytes 0.9 thou/uL (0.11-0.59); %Basophils 0.1 % (0.0-1.0); %Eosinophils 0.5 % (0.0-10.0); %Lymphocytes 10.3 % (21.0-51.0); %Monocytes 11.9 % (0.0-10.0); %Neutrophils 77.2 % (42.0-75.0); Hemoglobin 9.4 g/dL (12.0-16.0); Mean Corpuscular HGB CONC 31.6 g/dL (32.0-36.0); Mean Corpuscular Hemoglobin 29.7 pg (27.0-31.0); Mean Corpuscular Volume 93.9 fL (78.0-98.0); Mean Platelet Volume 7.5 fL (7.4-10.4); Platelet Count 264 thou/uL (130-400); RBC Distribution Width 13.4 % (11.5-14.5); Red Blood Cell (RBC) Count 3.16 mill/uL (4.20-5.40); White Blood Cell (WBC) Count 7.8 thou/uL (4.8-10.8)
[2018-09-24 05:15] LABS: Anion Gap 8 mmol/L (10-20); BUN (Urea Nitrogen) 6 mg/dL (9.8-20.1); Calc. Creatinine Clearance 42 mL/min (70-130); Carbon Dioxide 24 mmol/L (23-31); Chloride 104 mmol/L (98-107); Estimated GFR-MDRD Greater than 90; Glucose 94 mg/dL (83-110); Potassium 3.2 mmol/L (3.5-5.1); Sodium 133 mmol/L (136-145)
[2018-09-24] MEDS: Ciprofloxacin 500 MG TAB PO SCH (05:45)
[2018-09-24] MEDS: Magnesium Oxide 400 MG TAB PO SCH (09:40)
[2018-09-24] MEDS: Sodium Chloride 0.45% 1,000 ML IV SCH ×2 (14:00→15:38)
[2018-09-24] MEDS ORDERED: Potassium Chloride 20 MEQ TAB PO SCH (14:00)
[2018-09-24 15:46] VITALS: BP 129/78; TEMP 99
--- NOTE | 2018-09-26 03:07 | DIS ---
DATE OF ADMISSION: 09/19/2018 DATE OF DISCHARGE: 09/24/2018 ADMITTING DIAGNOSES: 1. Subdural hematoma, left. 2. Severe hypokalemia. 3. Generalized weakness. 4. Severe protein-calorie malnutrition. 5. Metabolic encephalopathy. 6. Anorexia and weight loss. FINAL DIAGNOSES: 1. Subdural hematoma, left. Stable. 2. Severe hypokalemia, corrected. 3. Generalized weakness. 4. Severe protein-calorie malnutrition. 5. Metabolic encephalopathy, improved. 6. GI bleeding, improved. 7. Paroxysmal atrial tachycardia, improving. 8. Hypertension, uncontrolled. Improved. BRIEF SUMMARY OF HOSPITAL COURSE: Ms. Batres is an 88-year-old female, admitted because of change in mental status. The patient was found to be dehydrated as well as severely hypokalemic. Her potassium was 2.7 on admission , it improved with supplements, came to 3.6. The patient also had an episode of rectal bleeding, but hemoglobin remained stable. GI consultation was done. The patient was seen by Dr. Samaniego and he felt work up can be done if the family wishes. He deferred the decision to the family and the family did not want to proceed with this and they wanted to treat conservatively. The patient also developed paroxysmal atrial tachycardia and Cardiology consultation was done. The patient was seen by Dr. Escobar who suggested to start the patient on Cardizem. Her blood pressure was uncontrolled initially, her Cardizem dose was increased and after which, the patient's blood pressure was controlled. The patient was started on physical therapy, but she is not able to participate much. She is not eating much. Family does not want any PEG tube feeding. She was continued on Remeron for the anorexia. The patient is unable to move much, so she is being transferred to nursing tushar At the time of discharge, she is stable. Her vital signs stable. Lungs clear. Heart sounds regular. Abdomen is soft, nontender. Bowel sounds present. DISCHARGE MEDICATIONS: 1. Remeron 15 mg daily. 2. Vitamin B12 daily. 3. KCl 20 mEq daily. 4. Diltiazem 180 mg daily. 5. Ciprofloxacin 500 b.i.d. for 1 week for UTI. [facility] They will recheck her potassium next day. Job ID: [id number] [facility]
--- NOTE | 2018-09-26 06:41 | PQF ---
INDRA MICHAEL VENKAT R MD [id number] [facility] [place] [id number] CLINICAL DOCUMENTATION CLARIFICATION FORM: POST DISCHARGE DATE: 09/26/2018 ATTN: Dr. Early Please exercise your independent, professional judgment in responding to the clarification form. Clinical indicators are provided on the bottom of this form for your review Please check appropriate box(s): [ ] Cerebral edema / Vasogenic edema [ ] Compression of brain [ ] Other diagnosis (please specify) [y ] Unable to determine In addition, please specify: Present on Admission (POA): [ y ] Yes [ ] No [ ] Unable to determine For continuity of documentation, please document condition throughout progress notes and discharge summary. Thank You. CLINICAL INDICATORS - SIGNS / SYMPTOMS / LABS Per CT/CT Brain: "Left subdural hematoma along the left frontal lobe convexity. This measures 1.5 cm width and produces mass effect on the left frontal cortex. Midline shift is measured at 4 mm at the septum pellucidum. Impression: Left subdural hematoma with mass effect and slight midline shift." Per CT/CT Brain: Mass effect with slight midline shift. Per H&P: Metabolic encephalopathy. Per neurology consult :([facility]): "It is possible that some of her symptoms do relate to parenchymal compression form this fluid collection." RISK FACTORS Per H&P: Left subdural hematoma. TREATMENTS Per H&P: Vital signs q. 4 hours. IV fluids, half normal at 870 mL/hour. Neurology consult 09/19 [facility]. (This form is maintained as a part of the permanent medical record) 2014 [employer]. All Rights Reserved Sharona [email or web address] [phone] [facility]TD[facility]
--- NOTE | 2018-09-27 11:24 | EKG ---
Test Reason : Blood Pressure : / mmHG Vent. Rate : 085 BPM Atrial Rate : 267 BPM P-R Int : 000 ms QRS Dur : 056 ms QT Int : 326 ms P-R-T Axes : 000 -14 -15 degrees QTc Int : 387 ms Sinus rhythm Minimal voltage criteria for LVH, may be normal variant Ohterwise normal EKG Confirmed by LEANN THOMAS DO ([id number]), editor greeting card [employer] ([id number]) on 09/27/2018 11:23:42 AM Referred By: Confirmed By:LEANN THOMAS DO
== END 2018-09-24 19:36 | DRG 64 ==
LOC: ERS 13:57 → 2SE 16:45
PROVIDERS: ADMIT Internal Medicine; ATTEND Internal Medicine
DX: I62.01 Nontraumatic acute subdural hemorrhage (principal); E43 Unspecified severe protein-calorie malnutrition; G93.41 Metabolic encephalopathy; J90 Pleural effusion, not elsewhere classified; I47.1 Supraventricular tachycardia; Z68.1 Body mass index [BMI] 19.9 or less, adult; K92.2 Gastrointestinal hemorrhage, unspecified; E87.6 Hypokalemia; M19.90 Unspecified osteoarthritis, unspecified site; K64.4 Residual hemorrhoidal skin tags; R53.1 Weakness; I10 Essential (primary) hypertension; E86.0 Dehydration
CPT/HCPCS: 36415; 70450; 71045; 80048; 80053; 81001; 82553; 83690; 83735; 83880; 84484; 85025; 87040; 87070; 87086; 87116; 87205; 87206; 93005; 93306; J3475; J3480

== ENCOUNTER 2018-11-05 10:42 | Emergency (ER) | payer MEDICARE, MEDICAID ==
--- NOTE | 2018-11-05 11:35 | RAD ---
XR Chest 1 View Portable HISTORY: Syncope COMPARISON: 09/19/2018 study. FINDINGS: Heart size is enlarged with atherosclerotic changes of the aorta. There is increased densit y now seen in the right lung base, this could represent layering of pleural effusion as it does not have a typical infiltrative appearance but could still represent infiltrate. IMPRESSION: 1. Cardiomegaly. 2. Increased density within the right lung base possibly related to layering of right pleural effusio n a PA and lateral chest film would be helpful in evaluating this.
--- NOTE | 2018-11-05 11:50 | CT ---
CT BRAIN NONCONTRAST: DATE: 11/05/2018 HISTORY: 88-year-old female with altered mental status, dizziness, and tremors FINDINGS: There is no evidence of acute intra-axial or extra-axial hemorrhage. There is no midline shift or any other mass effect. There is no extra-axial fluid collection. There is no evidence of obstructive hydrocephalus. Calvarium is intact. There is diffuse brain parenchymal volume loss. There are low att enuation areas in the white matter. These are nonspecific, but in a patient of this age, they are probably chronic ischemic white matter changes due to microvascular atherosclerosis. IMPRESSION: 1) No acute intracranial findings. 2) involutional changes and chronic ischemic white matter changes.
[2018-11-05 12:33] LABS: #Lymphocytes 1.5 thou/uL (1.20-3.40); #Monocytes 0.5 thou/uL (0.11-0.59); #Neutrophils 4.3 thou/uL (1.40-6.50); %Eosinophils 0.1 % (0.0-10.0); %Monocytes 7.7 % (0.0-10.0); %Neutrophils 68.1 % (42.0-75.0); Hemoglobin 10.2 g/dL (12.0-16.0); Mean Corpuscular HGB CONC 30.8 g/dL (32.0-36.0); Mean Corpuscular Hemoglobin 29.4 pg (27.0-31.0); Mean Corpuscular Volume 95.3 fL (78.0-98.0); Mean Platelet Volume 6.8 fL (7.4-10.4); Platelet Count 315 thou/uL (130-400); RBC Distribution Width 15.1 % (11.5-14.5); Red Blood Cell (RBC) Count 3.47 mill/uL (4.20-5.40); White Blood Cell (WBC) Count 6.2 thou/uL (4.8-10.8)
[2018-11-05 12:52] LABS: ALT (SGPT) Less than 7 U/L (8-55); AST (SGOT) 10 U/L (5-34); Albumin 2.3 g/dL (3.4-4.8); Alkaline Phosphatase 64 U/L (40-150); Anion Gap 6 mmol/L (10-20); BUN (Urea Nitrogen) 7 mg/dL (9.8-20.1); Bilirubin, Total 0.4 mg/dL (0.2-1.2); Calc. Creatinine Clearance 0 mL/min (70-130); Calcium 8.9 mg/dL (7.8-10.44); Carbon Dioxide 26 mmol/L (23-31); Chloride 103 mmol/L (98-107); Estimated GFR-MDRD Greater than 90; Globulin 6.3 g/dL (2.4-3.5); Glucose 115 mg/dL (83-110); Potassium 3.4 mmol/L (3.5-5.1); Protein, Total 8.6 g/dL (6.0-8.3); Sodium 132 mmol/L (136-145)
[2018-11-05 13:14] LABS: CKMB 0.2 ng/mL (0-6.6)
[2018-11-05 14:55] LABS: Bilirubin Negative (Negative); Blood, Urine Negative (Negative); Clarity Clear (Clear); Glucose, Urine (Dipstick) Negative (Negative); Leukocyte Trace (Negative); Nitrite Negative (Negative); Protein, Urine (Dipstick) Negative (Neg-Trace)
[2018-11-05 15:14] LABS: Specific Gravity, Urine 1.006 (1.002-1.036)
[2018-11-05 15:16] LABS: RBC/HPF None Seen HPF (0-3); Renal Epithelial 0-3 HPF (0-3); Squamous Epithelial 0-3 HPF (0-3); Transitional Epithelial 0-3 HPF (0-3)
[2018-11-05 15:17] LABS: Bacteria/HPF None Seen HPF (None Seen); Hyaline Casts/LPF 0-3 HYALINE CAST LPF (0-3 Hyaline)
--- NOTE | 2018-11-07 08:46 | EKG ---
Test Reason : DIZZY Blood Pressure : / mmHG Vent. Rate : 090 BPM Atrial Rate : 090 BPM P-R Int : 118 ms QRS Dur : 062 ms QT Int : 336 ms P-R-T Axes : 068 -10 046 degrees QTc Int : 411 ms Poor data quality, interpretation may be adversely affected Sinus rhythm with Premature atrial complexes Low voltage QRS Septal infarct , age undetermined Abnormal ECG Baseline Artifact Present Confirmed by MIRYAM SALAZAR MD ([id number]), news videotape editor [employer] ([id number]) on 11/07/2018 8:41:20 AM Also confirmed by MIRYAM SALAZAR MD ([id number]), news videotape editor [employer] ([id number]) on 11/07/2018 8:45:55 AM Referred By: Confirmed By:MIRYAM SALAZAR MD
== END 2018-11-05 15:55 | disposition home or self-care (01) ==
LOC: ERS 10:42
DX: R55 Syncope and collapse (principal); I10 Essential (primary) hypertension; F03.90 Unspecified dementia, unspecified severity, without behavioral disturbance, psychotic disturbance, mood disturbance, and anxiety; Z86.73 Personal history of transient ischemic attack (TIA), and cerebral infarction without residual deficits; Z79.899 Other long term (current) drug therapy
CPT/HCPCS: 36415; 51701; 70450; 71045; 80053; 81003; 81015; 82553; 84146; 84484; 85025; 93005; A4353

== ENCOUNTER 2018-11-17 18:24 | Emergency (ER) | payer MEDICARE, MEDICAID ==
[2018-11-17 19:26] LABS: #Lymphocytes 1.5 thou/uL (1.20-3.40); #Monocytes 0.7 thou/uL (0.11-0.59); #Neutrophils 3.2 thou/uL (1.40-6.50); %Basophils 0.3 % (0.0-1.0); %Eosinophils 0.2 % (0.0-10.0); %Lymphocytes 28.3 % (21.0-51.0); %Monocytes 12.4 % (0.0-10.0); %Neutrophils 58.7 % (42.0-75.0); Hemoglobin 10.2 g/dL (12.0-16.0); Mean Corpuscular HGB CONC 30.4 g/dL (32.0-36.0); Mean Corpuscular Hemoglobin 29.2 pg (27.0-31.0); Mean Corpuscular Volume 96.1 fL (78.0-98.0); Platelet Count 328 thou/uL (130-400); RBC Distribution Width 14.5 % (11.5-14.5); Red Blood Cell (RBC) Count 3.49 mill/uL (4.20-5.40); White Blood Cell (WBC) Count 5.4 thou/uL (4.8-10.8)
[2018-11-17 19:45] LABS: ALT (SGPT) Less than 7 U/L (8-55); AST (SGOT) 9 U/L (5-34); Alkaline Phosphatase 65 U/L (40-150); Anion Gap 10 mmol/L (10-20); BUN (Urea Nitrogen) 5 mg/dL (9.8-20.1); Bilirubin, Total 0.5 mg/dL (0.2-1.2); Calc. Creatinine Clearance 0 mL/min (70-130); Carbon Dioxide 22 mmol/L (23-31); Chloride 101 mmol/L (98-107); Estimated GFR-MDRD Greater than 90; Globulin 5.8 g/dL (2.4-3.5); Glucose 119 mg/dL (83-110); Protein, Total 7.8 g/dL (6.0-8.3); Sodium 130 mmol/L (136-145)
[2018-11-17 19:48] LABS: Potassium 2.8 mmol/L (3.5-5.1)
[2018-11-17] MEDS ORDERED: Potassium Bicarbonate/Cit Ac 25 MEQ TAB ONE (20:16)
== END 2018-11-17 21:27 | disposition home or self-care (01) ==
LOC: ERS 18:24
DX: E87.6 Hypokalemia (principal); E46 Unspecified protein-calorie malnutrition; R56.9 Unspecified convulsions; I10 Essential (primary) hypertension; F03.90 Unspecified dementia, unspecified severity, without behavioral disturbance, psychotic disturbance, mood disturbance, and anxiety; Z86.73 Personal history of transient ischemic attack (TIA), and cerebral infarction without residual deficits
CPT/HCPCS: 36415; 80053; 85025; 93005

== ENCOUNTER 2019-06-02 16:19 | Observation (INO) | payer MEDICARE, MEDICAID ==
[2019-06-02 16:47] LABS: #Lymphocytes 1.5 thou/uL (1.20-3.40); #Monocytes 0.7 thou/uL (0.11-0.59); #Neutrophils 5.5 thou/uL (1.40-6.50); %Basophils 0.5 % (0.0-1.0); %Eosinophils 0.1 % (0.0-10.0); %Lymphocytes 19.3 % (21.0-51.0); %Monocytes 9.3 % (0.0-10.0); %Neutrophils 70.8 % (42.0-75.0); Hemoglobin 9.8 g/dL (12.0-16.0); Mean Corpuscular HGB CONC 30.8 g/dL (32.0-36.0); Mean Corpuscular Hemoglobin 29.1 pg (27.0-31.0); Mean Corpuscular Volume 94.5 fL (78.0-98.0); Mean Platelet Volume 8.5 fL (7.4-10.4); Platelet Count 257 thou/uL (130-400); RBC Distribution Width 13.7 % (11.5-14.5); Red Blood Cell (RBC) Count 3.36 mill/uL (4.20-5.40); White Blood Cell (WBC) Count 7.8 thou/uL (4.8-10.8)
[2019-06-02 17:08] LABS: ALT (SGPT) Less than 7 U/L (8-55); AST (SGOT) 15 U/L (5-34); Albumin 2.1 g/dL (3.4-4.8); Alkaline Phosphatase 57 U/L (40-110); Anion Gap 7 mmol/L (10-20); BUN (Urea Nitrogen) 7 mg/dL (9.8-20.1); Bilirubin, Total 0.8 mg/dL (0.2-1.2); Calc. Creatinine Clearance 0 mL/min (70-130); Calcium 7.8 mg/dL (7.8-10.44); Carbon Dioxide 35 mmol/L (23-31); Chloride 99 mmol/L (98-107); Estimated GFR-MDRD Greater than 90; Globulin 6.5 g/dL (2.4-3.5); Glucose 114 mg/dL (83-110); Magnesium 1.9 mg/dL (1.6-2.6); Protein, Total 8.6 g/dL (6.0-8.3); Sodium 138 mmol/L (136-145)
[2019-06-02 17:09] LABS: Potassium 2.9 mmol/L (3.5-5.1)
[2019-06-02] MEDS ORDERED: Potassium Chloride 20 MEQ in Premix Bag 1 BAG IVPB SCH (17:30)
[2019-06-03 03:04] VITALS: BMI 16.8
[2019-06-03] MEDS: Potassium Chloride 20 MEQ TAB PO SCH ×2 (03:08→07:37)
[2019-06-03 05:05] LABS: #Lymphocytes 1.8 thou/uL (1.20-3.40); #Neutrophils 4.3 thou/uL (1.40-6.50); %Basophils 0.3 % (0.0-1.0); %Eosinophils 0.5 % (0.0-10.0); %Lymphocytes 25.4 % (21.0-51.0); %Monocytes 13.4 % (0.0-10.0); %Neutrophils 60.4 % (42.0-75.0); Hemoglobin 8.4 g/dL (12.0-16.0); Mean Corpuscular HGB CONC 30.5 g/dL (32.0-36.0); Mean Corpuscular Hemoglobin 29.1 pg (27.0-31.0); Mean Corpuscular Volume 95.3 fL (78.0-98.0); Platelet Count 228 thou/uL (130-400); RBC Distribution Width 13.7 % (11.5-14.5); White Blood Cell (WBC) Count 7.1 thou/uL (4.8-10.8)
[2019-06-03 05:20] LABS: Anion Gap 6 mmol/L (10-20); BUN (Urea Nitrogen) 7 mg/dL (9.8-20.1); Calc. Creatinine Clearance 52 mL/min (70-130); Calcium 7.6 mg/dL (7.8-10.44); Carbon Dioxide 33 mmol/L (23-31); Chloride 104 mmol/L (98-107); Estimated GFR-MDRD Greater than 90; Glucose 85 mg/dL (83-110); Sodium 140 mmol/L (136-145)
[2019-06-03 05:30] LABS: Potassium 2.9 mmol/L (3.5-5.1)
[2019-06-03] MEDS ORDERED: Potassium Chloride 20 MEQ in Premix Bag 1 BAG IVPB SCH (06:15)
[2019-06-03] MEDS ORDERED: FLU VACC TS2019-20(65YR UP)/PF 180 MCG/0.5 ML SYRINGE IM ONE (09:00)
[2019-06-03] MEDS ORDERED: Prevnar 13-Val Conj/PF 0.5 ML SYRINGE IM ONE (09:00)
[2019-06-03] MEDS: Potassium Chloride 20 MEQ in Premix Bag 1 BAG IVPB SCH ×2 (10:48→15:13)
[2019-06-03 20:12] LABS: ALT (SGPT) Less than 7 U/L (8-55); AST (SGOT) 11 U/L (5-34); Alkaline Phosphatase 51 U/L (40-110); Anion Gap 8 mmol/L (10-20); BUN (Urea Nitrogen) 6 mg/dL (9.8-20.1); Bilirubin, Total 0.6 mg/dL (0.2-1.2); Calc. Creatinine Clearance 51 mL/min (70-130); Calcium 7.6 mg/dL (7.8-10.44); Carbon Dioxide 29 mmol/L (23-31); Chloride 105 mmol/L (98-107); Estimated GFR-MDRD Greater than 90; Globulin 5.8 g/dL (2.4-3.5); Glucose 86 mg/dL (83-110); Magnesium 1.8 mg/dL (1.6-2.6); Potassium 3.9 mmol/L (3.5-5.1); Protein, Total 7.8 g/dL (6.0-8.3); Sodium 138 mmol/L (136-145)
[2019-06-03] MEDS: Mirtazapine 15 MG TAB PO SCH (20:24)
[2019-06-04 05:05] LABS: Anion Gap 7 mmol/L (10-20); BUN (Urea Nitrogen) 7 mg/dL (9.8-20.1); Calc. Creatinine Clearance 52 mL/min (70-130); Calcium 7.7 mg/dL (7.8-10.44); Carbon Dioxide 28 mmol/L (23-31); Chloride 106 mmol/L (98-107); Estimated GFR-MDRD Greater than 90; Glucose 116 mg/dL (83-110); Magnesium 1.7 mg/dL (1.6-2.6); Potassium 3.4 mmol/L (3.5-5.1); Sodium 138 mmol/L (136-145)
[2019-06-04 05:10] LABS: #Lymphocytes 1.6 thou/uL (1.20-3.40); #Monocytes 0.7 thou/uL (0.11-0.59); #Neutrophils 3.9 thou/uL (1.40-6.50); %Basophils 0.1 % (0.0-1.0); %Eosinophils 0.5 % (0.0-10.0); %Lymphocytes 25.7 % (21.0-51.0); %Monocytes 10.8 % (0.0-10.0); Hemoglobin 8.7 g/dL (12.0-16.0); Mean Corpuscular HGB CONC 29.8 g/dL (32.0-36.0); Mean Corpuscular Hemoglobin 28.2 pg (27.0-31.0); Mean Corpuscular Volume 94.7 fL (78.0-98.0); Mean Platelet Volume 8.1 fL (7.4-10.4); Platelet Count 211 thou/uL (130-400); RBC Distribution Width 13.9 % (11.5-14.5); White Blood Cell (WBC) Count 6.2 thou/uL (4.8-10.8)
--- NOTE | 2019-06-04 07:58 | HP ---
REASON FOR ADMISSION: Severe hypokalemia. HISTORY OF PRESENT ILLNESS: Ms. Batres is an 88-year-old female, admitted because of hypokalemia. The patient was seen in the office and had lab work done showed a potassium of 2.7. She was advised to come to the hospital. In the ER, the patient was evaluated and found to have a potassium of 2.9. The patient also has been feeling very weak. She has history of protein-calorie malnutrition, does not eat very well. Has lost weight, but she is gaining some weight now. The patient was given potassium in the ER, admitted for further evaluation and management. PAST MEDICAL HISTORY: 1. Hypertension. 2. Hyperlipidemia. 3. Dementia. 4. Hard of hearing. 5. History of umbilical hernia. 6. Degenerative joint disease. 7. History of hypertension, not on medications. PAST SURGICAL HISTORY: Nothing contributory. CURRENT MEDICATIONS: The patient is on: 1. Remeron 15 mg daily. 2. Tylenol p.r.n. 3. not taking potassium. 4. Vitamin B12 1000 mcg daily. 5. Folic acid 1 mg daily. ALLERGIES: NKDA. FAMILY HISTORY: Nothing contributory. SOCIAL HISTORY: The patient lives with family. No history of smoking. No history of alcohol. REVIEW OF SYSTEMS: CARDIOVASCULAR: No chest pain. No shortness of breath. RESPIRATORY: No fever or cough. GASTROINTESTINAL: No nausea, vomiting, abdominal pain. CENTRAL NERVOUS SYSTEM: No headache. No dizziness. PHYSICAL EXAMINATION: GENERAL: The patient is alert, awake, oriented x2. MOTOR SYSTEM: Power 3-4/5 in all extremities. Deep tendon reflex 2+ bilaterally. Plantars downgoing. Sensory intact. LABORATORY DATA: CBC shows WBC 7.8, hemoglobin 9.8, hematocrit 31, platelets 257. Metabolic panel; sodium 138, potassium 2.9, chloride 99 CO2 35, BUN 7, creatinine 0.5, glucose 114. EKG shows normal sinus rhythm, no acute ST-T changes seen. ASSESSMENT: 1. Severe hypokalemia. 2. Severe protein-calorie malnutrition. 3. History of hypertension. 4. Unstable gait. 5. Generalized weakness. PLAN: 1. Vital signs q.4 hours. 2. Activities, as tolerated. 3. Allergies, NKDA. 4. Hep-Lock. 5. KCl replacement. 6. Regular diet. 7. Continue home medications. 8. Recheck magnesium level. Job ID: [id number] [facility]
[2019-06-04] MEDS: Cyanocobalamin (Vitamin B-12) 1,000 MCG TAB PO SCH (08:32)
[2019-06-04] MEDS: Folic Acid 1 MG TAB PO SCH (08:32)
[2019-06-04] MEDS: Potassium Chloride 20 MEQ TAB PO SCH ×2 (12:53→16:54)
[2019-06-04] MEDS: Mirtazapine 15 MG TAB PO SCH ×2 (19:44→19:47)
[2019-06-05 04:58] LABS: Anion Gap 8 mmol/L (10-20); BUN (Urea Nitrogen) 6 mg/dL (9.8-20.1); Calc. Creatinine Clearance 48 mL/min (70-130); Calcium 7.8 mg/dL (7.8-10.44); Carbon Dioxide 27 mmol/L (23-31); Chloride 105 mmol/L (98-107); Estimated GFR-MDRD Greater than 90; Glucose 89 mg/dL (83-110); Potassium 3.7 mmol/L (3.5-5.1); Sodium 136 mmol/L (136-145)
[2019-06-05] MEDS ORDERED: Sodium Chloride 0.9% 10 ML ONE (08:09)
[2019-06-05] MEDS: Folic Acid 1 MG TAB PO SCH (08:54)
[2019-06-05] MEDS: Cyanocobalamin (Vitamin B-12) 1,000 MCG TAB PO SCH (08:54)
[2019-06-05] MEDS ORDERED: Potassium Chloride 20 MEQ TAB PO SCH (09:00)
[2019-06-05 12:49] VITALS: BP 121/68; TEMP 97.1
--- NOTE | 2019-06-08 10:03 | DIS ---
DATE OF ADMISSION: 06/02/2019 DATE OF DISCHARGE: 06/05/2019 ADMITTING DIAGNOSES: 1. Severe hypokalemia. 2. Severe protein-calorie malnutrition. 3. History of hypertension. 4. Unstable gait. 5. Generalized weakness. FINAL DIAGNOSES: 1. Severe hypokalemia, corrected. 2. Severe protein-calorie malnutrition. 3. Chronic anemia. 4. History of hypertension. 5. Dementia. 6. Hard of hearing. 7. Degenerative joint disease. BRIEF SUMMARY OF HOSPITAL COURSE: Ms. Batres is an 88-year-old female, admitted because of hypokalemia. The patient was found to have severe hypokalemia on the lab work done in the office. Her potassium was 2.7, so she came, and she was admitted here, it was 2.9. The patient was given potassium replacements, and the admission level was also checked that clearly and gradually improved to 3.9, then 3.4, and 3.7. The patient was placed on maintenance potassium as well. The patient was started on diet. She was not eating that much well, was able to drink protein shakes. Since being in view of improvement, the patient is being discharged. Family said they will take care of her at home, so she is being discharged home. At the time of discharge, she was stable. Her vital signs are stable. Lungs clear, heart sounds regular. The abdomen is soft and nontender. Bowel sounds present. DISCHARGE MEDICATIONS: Include, 1. Mirtazapine 15 mg nightly. 2. Vitamin B12 1000 mcg daily. 3. KCl 20 mEq daily. 4. Folic acid 1 mg daily. The patient will come for a followup in 2 weeks. Job ID: [id number]
== END 2019-06-05 14:12 | disposition home or self-care (01) ==
LOC: ERS 16:19 → 2NO 20:54
PROVIDERS: ADMIT Internal Medicine; ATTEND Internal Medicine
DX: E87.6 Hypokalemia (principal); I10 Essential (primary) hypertension; E78.5 Hyperlipidemia, unspecified; M19.90 Unspecified osteoarthritis, unspecified site; R53.1 Weakness; F03.90 Unspecified dementia, unspecified severity, without behavioral disturbance, psychotic disturbance, mood disturbance, and anxiety; R26.81 Unsteadiness on feet; E43 Unspecified severe protein-calorie malnutrition; Z68.1 Body mass index [BMI] 19.9 or less, adult; Z86.73 Personal history of transient ischemic attack (TIA), and cerebral infarction without residual deficits; Z79.899 Other long term (current) drug therapy
CPT/HCPCS: 80048 ×3; 80053 ×2; 83735 ×3; 85025 ×3; 90662; 93005; 96361; 96365; 96366; 99285; G0008; 36415; 90471; G0378; J3480